=== PATIENT | female | born 1980 | race Caucasian/White ===

== ENCOUNTER 2018-01-13 15:24 | Outpatient (CLI) | payer OTHER ==
[~2018-01-13] VITALS: Ht 167.6 cm; Wt 82.6 kg
[2018-01-13] VITALS (13 sets, daily range): BP systolic 125–146; BP diastolic 65–90
[~2018-01-13 15:24] MED LIST: IRON325 MG PO; MOTRIN800 MG PO; PERCOCET 5/31 TABLET PO; PRENATAL TABLE1 EAC3 PO
[2018-01-13 16:45] LABS: BASOPHIL (%) 0.4 % (0-1); EOSINOPHIL (%) 3.2 % (0-5); EOSINOPHIL COUNT 0.3 K/uL (0-0.3); HEMATOCRIT 30.6 % (36.0-46.0); HEMOGLOBIN 10.8 G/DL (11.9-15.5); IMMATURE GRANULOCYTE (%) 0.6 % (0.0-0.7); LYMPHOCYTE (%) 21.2 % (15-42); LYMPHOCYTE COUNT 1.7 K/uL (1.0-2.8); MCHC 35.3 G/DL (30.0-36.0); MCV 90.8 FL (83-99); MONOCYTE (%) 10.9 % (3-12); MONOCYTE COUNT 0.9 K/uL (0-0.8); NEUTROPHIL (%) 63.7 % (45-76); PLATELET COUNT 212 K/uL (156-360); RBC DIS.WIDTH-CV 13.1 % (11.8-14.6); RBC DIS.WIDTH-SD 42.7 % (39-53); RED BLOOD COUNT 3.37 M/uL (3.80-5.20); WHITE BLOOD COUNT 7.9 K/uL (4.1-10.2)
[2018-01-13 17:01] LABS: ALBUMIN 3.1 G/DL (3.2-4.8); ALKALINE PHOSPHATASE 110 IU/L (3-129); ALT (GPT) 10 IU/L (3-49); AST (GOT) 19 IU/L (2-34); CHLORIDE 109 MEQ/L (99-109); CREATININE 0.6 MG/DL (0.6-1.3); GFR ESTIMATE (CALCULATED) > 59 mL/min/; GLUCOSE 75 mg/dL (70-99); POTASSIUM 2.7 MEQ/L (3.7-5.4); SODIUM 140 MEQ/L (136-147); TOTAL BILIRUBIN 0.5 MG/DL (0.0-1.0); TOTAL PROTEIN 5.4 G/DL (6.4-8.3); UREA NITROGEN (BUN) 6 mg/dL (9-23)
[2018-01-13 18:47] LABS: UR CREATININE CONCENTRATION 59.4 MG/DL
== END 2018-01-13 20:30 | disposition home or self-care (01) ==
LOC: LDRP-OP 15:24 → 2WEST 15:27 → LDRP-OP 03-16 08:45
PROVIDERS: Obstetrics & Gynecology Obstetrics
DX: O16.3 Unspecified maternal hypertension, third trimester (principal); Z3A.35 35 weeks gestation of pregnancy; Z87.891 Personal history of nicotine dependence
CPT/HCPCS: 59025; 80053; 82570; 84156; 85025; G0378

== ENCOUNTER 2018-01-20 11:04 | Outpatient (CLI) | payer OTHER ==
[~2018-01-20] VITALS: Ht 167.6 cm; Wt 83.2 kg
[2018-01-20] VITALS (8 sets, daily range): BP systolic 132–142; BP diastolic 70–89
[2018-01-20 12:29] LABS: BASOPHIL (%) 0.4 % (0-1); EOSINOPHIL (%) 2.8 % (0-5); EOSINOPHIL COUNT 0.2 K/uL (0-0.3); HEMATOCRIT 30.3 % (36.0-46.0); HEMOGLOBIN 10.7 G/DL (11.9-15.5); IMMATURE GRANULOCYTE (%) 0.6 % (0.0-0.7); LYMPHOCYTE (%) 19.4 % (15-42); LYMPHOCYTE COUNT 1.5 K/uL (1.0-2.8); MCHC 35.3 G/DL (30.0-36.0); MCV 90.7 FL (83-99); MONOCYTE (%) 10.5 % (3-12); MONOCYTE COUNT 0.8 K/uL (0-0.8); NEUTROPHIL (%) 66.3 % (45-76); NEUTROPHIL COUNT 5.3 K/uL (1.8-6.4); PLATELET COUNT 198 K/uL (156-360); RBC DIS.WIDTH-SD 42.4 % (39-53); RED BLOOD COUNT 3.34 M/uL (3.80-5.20); WHITE BLOOD COUNT 7.9 K/uL (4.1-10.2)
[2018-01-20 12:54] LABS: ALBUMIN 2.9 G/DL (3.2-4.8); ALKALINE PHOSPHATASE 131 IU/L (3-129); ALT (GPT) 9 IU/L (3-49); AST (GOT) 19 IU/L (2-34); CHLORIDE 107 MEQ/L (99-109); CREATININE 0.6 MG/DL (0.6-1.3); GFR ESTIMATE (CALCULATED) > 59 mL/min/; GLUCOSE 68 mg/dL (70-99); POTASSIUM 2.7 MEQ/L (3.7-5.4); SODIUM 140 MEQ/L (136-147); TOTAL BILIRUBIN 0.5 MG/DL (0.0-1.0); TOTAL PROTEIN 5.2 G/DL (6.4-8.3); UREA NITROGEN (BUN) 5 mg/dL (9-23)
[2018-01-22] MEDS ORDERED: K-DUR20 MEQ PO (07:48)
== END 2018-01-20 15:50 | disposition home or self-care (01) ==
LOC: LDRP-OP 11:04 → 2WEST 11:05 → LDRP-OP 03-16 22:31
PROVIDERS: Obstetrics & Gynecology
DX: O14.03 Mild to moderate pre-eclampsia, third trimester (principal); Z3A.36 36 weeks gestation of pregnancy; O30.043 Twin pregnancy, dichorionic/diamniotic, third trimester
CPT/HCPCS: 59025; 80053; 82570; 85025; G0378; J3480

== ENCOUNTER 2018-01-23 05:35 | Inpatient (IN) | payer OTHER ==
[2018-01-23] VITALS (7 sets, daily range): BP systolic 140–169; BP diastolic 74–91
[~2018-01-23] VITALS: Ht 167.6 cm; Wt 81.6 kg
[~2018-01-23 05:35] MED LIST changes: +K-DUR20 MEQ PO
[2018-01-23 07:03] LABS: AMPHETAMINE NEGATIVE (500 ng/mL); BARBITURATES NEGATIVE (200 ng/mL); BENZODIAZEPINES NEGATIVE (150 ng/mL); BUPRENORPHINE NEGATIVE (10 ng/mL); COCAINE NEGATIVE (150 ng/mL); METHADONE NEGATIVE (200 ng/mL); METHAMPHETAMINE NEGATIVE (500 ng/mL); OPIATES (MORPHINE) NEGATIVE (100 ng/mL); OXYCODONE NEGATIVE (100 ng/mL); PHENCYCLIDINE NEGATIVE (25 ng/mL); PROPOXYPHENE NEGATIVE (300 ng/mL); THC CANNABINOIDS NEGATIVE (50 ng/mL); TRICYCLIC ANTIDEPRESSANTS NEGATIVE (300 ng/mL)
[2018-01-23] MEDS ORDERED: ENDOCET 5-3251 EACH PO (09:41)
[2018-01-23] MEDS ORDERED: IBUPROFEN800 MG PO (09:41)
[2018-01-24 07:02] LABS: BASOPHIL (%) 0.3 % (0-1); EOSINOPHIL (%) 2.6 % (0-5); EOSINOPHIL COUNT 0.3 K/uL (0-0.3); HEMATOCRIT 25.3 % (36.0-46.0); IMMATURE GRANULOCYTE (%) 0.7 % (0.0-0.7); LYMPHOCYTE (%) 17.5 % (15-42); LYMPHOCYTE COUNT 1.7 K/uL (1.0-2.8); MCH 31.8 PG (29.0-34.0); MCHC 34.4 G/DL (30.0-36.0); MCV 92.3 FL (83-99); MONOCYTE (%) 8.2 % (3-12); MONOCYTE COUNT 0.8 K/uL (0-0.8); NEUTROPHIL (%) 70.7 % (45-76); PLATELET COUNT 168 K/uL (156-360); RED BLOOD COUNT 2.74 M/uL (3.80-5.20); WHITE BLOOD COUNT 9.9 K/uL (4.1-10.2)
[2018-01-24 07:06] LABS: HEMOGLOBIN 8.7 G/DL (11.9-15.5)
[2018-01-24 11:17] VITALS: BP 135/76
[2018-01-24 14:48] VITALS: BP 137/73
[2018-01-24 19:30] VITALS: BP 145/69
[2018-01-24 22:40] VITALS: BP 152/87
[2018-01-25 03:35] VITALS: BP 160/86
[2018-01-25 11:30] VITALS: BP 142/75
[2018-01-25 14:36] VITALS: BP 145/82
[2018-01-25 20:20] VITALS: BP 144/75
[2018-01-26] VITALS (8 sets, daily range): BP systolic 142–196; BP diastolic 78–88
[2018-01-26 18:07] LABS: BASOPHIL (%) 0.4 % (0-1); EOSINOPHIL (%) 7.8 % (0-5); EOSINOPHIL COUNT 0.5 K/uL (0-0.3); HEMATOCRIT 25.4 % (36.0-46.0); HEMOGLOBIN 8.5 G/DL (11.9-15.5); IMMATURE GRANULOCYTE (%) 0.7 % (0.0-0.7); LYMPHOCYTE (%) 22.4 % (15-42); LYMPHOCYTE COUNT 1.5 K/uL (1.0-2.8); MCH 31.7 PG (29.0-34.0); MCHC 33.5 G/DL (30.0-36.0); MCV 94.8 FL (83-99); MONOCYTE (%) 8.9 % (3-12); MONOCYTE COUNT 0.6 K/uL (0-0.8); NEUTROPHIL (%) 59.8 % (45-76); NEUTROPHIL COUNT 4.1 K/uL (1.8-6.4); RBC DIS.WIDTH-CV 13.1 % (11.8-14.6); RBC DIS.WIDTH-SD 45.1 % (39-53); RED BLOOD COUNT 2.68 M/uL (3.80-5.20); WHITE BLOOD COUNT 6.9 K/uL (4.1-10.2)
[2018-01-26 18:13] LABS: PLATELET COUNT 230 K/uL (156-360)
[2018-01-26 18:35] LABS: ALBUMIN 2.9 G/DL (3.2-4.8); ALT (GPT) 18 IU/L (3-49); AST (GOT) 26 IU/L (2-34); CHLORIDE 106 MEQ/L (99-109); CREATININE 0.6 MG/DL (0.6-1.3); GFR ESTIMATE (CALCULATED) > 59 mL/min/; GLUCOSE 93 mg/dL (70-99); POTASSIUM 3.5 MEQ/L (3.7-5.4); SODIUM 140 MEQ/L (136-147); TOTAL PROTEIN 5.6 G/DL (6.4-8.3); UREA NITROGEN (BUN) 8 mg/dL (9-23)
[2018-01-26 18:37] LABS: ALKALINE PHOSPHATASE 97 IU/L (3-129); TOTAL BILIRUBIN 0.3 MG/DL (0.0-1.0)
[2018-01-27 01:30] VITALS: BP 158/88
[2018-01-27 04:30] VITALS: BP 150/78
[2018-01-27 07:50] VITALS: BP 142/83
[2018-01-27 10:55] VITALS: BP 140/78
[2018-01-27] MEDS ORDERED: LABETALOL HCL200 MG PO (11:57)
== END 2018-01-27 16:50 | disposition home or self-care (01) | DRG 765 ==
LOC: 2SOUTH → 2WEST 05:35 → 2SOUTH 08:55 → 2WEST 01-27 16:50
PROVIDERS: Obstetrics & Gynecology; Obstetrics & Gynecology Obstetrics
DX: O14.04 Mild to moderate pre-eclampsia, complicating childbirth (principal); O60.14X0 Preterm labor third trimester with preterm delivery third trimester, not applicable or unspecified; O34.211 Maternal care for low transverse scar from previous cesarean delivery; O30.043 Twin pregnancy, dichorionic/diamniotic, third trimester; O60.14X2 Preterm labor third trimester with preterm delivery third trimester, fetus 2; Z37.2 Twins, both liveborn; Z3A.36 36 weeks gestation of pregnancy; Z30.2 Encounter for sterilization; O09.523 Supervision of elderly multigravida, third trimester; O60.14X1 Preterm labor third trimester with preterm delivery third trimester, fetus 1; E87.6 Hypokalemia
CPT/HCPCS: 36415; 59025; 80053; 82570; 84132; 85025; 86850; 86900; 86901; 88302; 88307; G0378; J0690; J2250; J2274; J2405; J2590; J3010; J3480; J7120